=== PATIENT | female | born 1975 | race Caucasian/White ===

== ENCOUNTER 2021-05-14 08:11 | Inpatient (IN) | payer OTHER ==
[~2021-05-14] VITALS: Ht 162.6 cm; Wt 71.2 kg
[2021-05-14] MEDS ORDERED: AMOX-CLAV 875-1 EAC1 (13:18)
[2021-05-14] MEDS ORDERED: CIPROFLOX-DEXA7.5 ML (13:19)
[2021-05-14] MEDS ORDERED: FLONASE16 GM (13:19)
== END 2021-05-17 12:51 | disposition home or self-care (01) | DRG 742 ==
LOC: SURH → O/R 10:08 → SURH 10:45 → OB/GYN 11:29 → SURH 14:52 → OB/GYN 05-17 12:51
PROVIDERS: ADMIT Specialist; ATTEND Specialist
PROC: 0UT70ZZ Resection of Bilateral Fallopian Tubes, Open Approach (ICD-10-PCS; 2021-05-14)
PROC: 0UT90ZZ Resection of Uterus, Open Approach (ICD-10-PCS; principal; 2021-05-14 14:45)
DX: D25.0 Submucous leiomyoma of uterus (principal); R71.0 Precipitous drop in hematocrit; D25.1 Intramural leiomyoma of uterus; D25.2 Subserosal leiomyoma of uterus; N72 Inflammatory disease of cervix uteri; N80.0 Endometriosis of uterus; N80.2 Endometriosis of fallopian tube; N83.8 Other noninflammatory disorders of ovary, fallopian tube and broad ligament; N84.0 Polyp of corpus uteri

== ENCOUNTER → 2023-08-06 | Outpatient (CLI) | payer OTHER ==
[~2023-08-06] MED LIST: AMOX-CLAV 875-1 EAC1; CIPROFLOX-DEXA7.5 ML; FLONASE16 GM
== END | disposition home or self-care (01) ==
LOC: NUCLEAR 08:48
PROVIDERS: ATTEND Internal Medicine Cardiovascular Disease
DX: I11.0 Hypertensive heart disease with heart failure (principal); I50.9 Heart failure, unspecified; R07.9 Chest pain, unspecified